=== PATIENT | female | born 1995 ===

== ENCOUNTER 2019-05-17 11:01 | Day surgery (SDC) | payer SELFPAY ==
[2019-05-17] MEDS ORDERED: fentaNYL* 50 MCG/ML 2 ML VIAL (100 MCG VIAL) ONE ×3 (12:03→13:51)
[2019-05-17] MEDS ORDERED: Propofol* 10 MG/ML 20 ML BTL ONE (12:04)
[2019-05-17] MEDS ORDERED: Dexamethasone IV* 4 MG/ML 1 ML (4 MG) ONE (12:04)
[2019-05-17] MEDS ORDERED: Ondansetron INJ* 2 MG/ML VIAL ONE (12:04)
[2019-05-17] MEDS ORDERED: Rocuronium* 10 MG/ML VIAL ONE (12:04)
[2019-05-17] MEDS ORDERED: Ketorolac INJ* 30 MG/ML 1 ML VIAL ONE (12:04)
[2019-05-17] MEDS ORDERED: Lidocaine 2% PF * 5 ML VIAL ONE ×2 (12:08→13:16)
[2019-05-17] MEDS ORDERED: Piperacillin/Tazobactam VIAL*) 3.375 GM VIAL (COMPD & OVERRIDE) IVPB ONE (12:14)
[2019-05-17] MEDS ORDERED: Sugammadex * 200 MG/2 ML VIAL IV PUSH ONE (12:16)
[2019-05-17] MEDS ORDERED: Neostigmine Methylsulfate* 1 MG/ML 10 ML VIAL (1 mg/ml) ONE (13:14)
[2019-05-17] MEDS ORDERED: Glycopyrrolate IV* 0.2 MG/ML 1 ML VIAL ONE (13:15)
[2019-05-17] MEDS ORDERED: Bacitracin OINTMENT* 0.5% 0.5 oz TUBE ONE (13:30)
--- NOTE | 2019-05-17 13:35 | BRIEFOPN ---
Brief Operative Note - Surgery Procedures: Pre-OP Diagnoses: acute appendicitis Post-op Diagnosis: same Procedure: Laparoscopic appendectomy Surgeon: Susie Asst: ANTONIO Mayfield Anethesia: TU EBL: minimal IVF: crystalloid Specimen: appendix Drains: none
[2019-05-17] MEDS ORDERED: fentaNYL* 50 MCG/ML 2 ML VIAL (100 MCG VIAL) IV PRN (13:47)
[2019-05-17] MEDS ORDERED: Naloxone* 0.4 MG/ML 1 ML VIAL IV PRN (13:47)
[2019-05-17] MEDS ORDERED: DiMENhydriNATE IV* 50 MG/ML VIAL IV PUSH PRN (13:47)
[2019-05-17] MEDS ORDERED: DiMENhydriNATE IV* 50 MG/ML VIAL ONE (13:51)
--- NOTE | 2019-05-17 15:00 | HP ---
CC: Dr. Cobb in [facility] * HISTORY AND PHYSICAL: DATE OF ADMISSION: 05/17/19. The patient was seen in the preoperative area on 05/17/19. HISTORY: I was contacted by [facility] that the patient is in the emergency room with acute abdominal pain and workup consistent with acute appendicitis, so I asked the patient to be transferred to our unit and she was. I saw the patient today that she had pain starting last night. It was a dull mid abdominal pain that woke her up 2 a.m. this morning and she had a significant abdominal pain doubled over and crying. She did have appetite at that time and did eat and that was the last time she had eaten and she still maintains good appetite. She had positive nausea without vomiting. No fevers or chills. She did have constipation but no diarrhea. The patient also describes some shortness of breath with symptoms. She denies any previous similar symptoms. PAST MEDICAL HISTORY: Anxiety. PAST SURGICAL HISTORY: None. MEDICATIONS: None. ALLERGIES: No known drug allergies. FAMILY HISTORY: Noncontributory. No family history of ulcerative colitis or Crohn's disease. SOCIAL HISTORY: Smoker about a half a pack a day. Smokes marijuana almost daily. She lives with family. She is a nonworker. REVIEW OF SYSTEMS: No fevers or chills. Positive shortness of breath as described. Obesity. No metabolic disorders. The patient has never been hospitalized. No bleeding or clotting disorders. No dysuria. Her last menstrual period was 4 days ago. It was normal. PHYSICAL EXAMINATION GENERAL: Alert and oriented x3, in no apparent distress. VITAL SIGNS: She is afebrile. Vital signs are stable. HEAD, EYES, EARS, NOSE, AND THROAT: Normocephalic, atraumatic. Sclerae anicteric. Mucous membranes are moist. NECK: No lymphadenopathy. LUNGS: Clear to auscultation bilaterally. ABDOMEN: Soft, obese, tender on any palpation at the right lower quadrant epigastric region. Positive voluntary guarding. No involuntary guarding. No rebound. No hernia is noted. EXTREMITIES: Within normal limits. RECTAL: Not performed. DIAGNOSTIC STUDIES/LAB DATA: The patient's labs from the other hospital reviewed. White count was elevated at 26. Urinalysis had a cloudy appearance and had positive nitrites. LFTs within normal limits and metabolic panel also within normal limits with a glucose of 150, which is elevated as the only outlier. CT scan reviewed shows a mildly dilated appendix with periappendiceal inflammation. IMPRESSION: Acute appendicitis and urinary tract infection. RECOMMENDATIONS: Antibiotics and OR for laparoscopic appendectomy. I outlined the details of the procedure going over the risks, benefits, and alternatives of the procedure and the patient's family agreed to proceed as described. I went over the potential complications of bleeding, infection, additional findings at the time of surgery as well as abscess formation, need for open procedure, or additional procedures. The patient signed consent. She was marked and she is scheduled for written surgery. Antibiotics, Givens catheter in OR. [id number] #: [id number] MTDD
[2019-05-17] MEDS ORDERED: oxyCODONE/Acetamin 5/325 MG* TAB ONE (15:23)
[2019-05-17 16:25] VITALS: BP 120/86
--- NOTE | 2019-05-17 16:41 | OP ---
CC: Dr. Dempsey * DATE OF OPERATION: 05/17/19 - [facility] DATE OF : 89 SURGEON: Fran Richards MD FOOT WORKER: ANTONIO Ellis ANESTHESIOLOGIST: Dr. Stauffer. ANESTHESIA: General anesthesia. PRE-OP DIAGNOSIS: Acute appendicitis. POST-OP DIAGNOSIS: Acute appendicitis. OPERATIVE PROCEDURE: Laparoscopic appendectomy. ESTIMATED BLOOD LOSS: Minimal. FLUIDS: Crystalloid fluid given. SPECIMENS: Appendix. COUNTS: Lap pad count and instrument count correct at the end of the procedure. DESCRIPTION OF PROCEDURE: The patient was identified in the preoperative area, brought to the OR, placed on the operating table in supine position. Preoperative antibiotics were given. A Givens catheter was inserted and the patient's abdomen was prepped and draped in standard surgical fashion. A time- out was performed. I attempted to place a Veress needle through the umbilicus; this proved difficult, and I abandoned this and rather made an infraumbilical incision. We deepened this down to what appeared to be hernia and this was lifted up, but another attempt of a Veress needle was failed and I felt that I could not see deep given the patient's body habitus to make a cut down at this point and rather converted my attention to the right upper quadrant where an incision was made, deepened down to the fascia which was elevated and Veress needle was advanced successfully and placed in the abdomen, which was allowed to insufflate to a pressure of 15 mmHg. Veress needle was removed and a 12 mm Optiview trocar was inserted. Laparoscope was inserted through this. There was no evidence of injury from the trocar insertion or from the Veress needle. Review of the umbilicus area revealed that the Veress needle never violated the peritoneum. Additional 5 mm trocar was placed at the umbilicus and then at the suprapubic area. Table was repositioned, dilated, but nonperforated appendix was clearly identified. We made a window at the base of the appendix and fired a 30-mm jaime MICHAEL stapling device across this to help the tissue. The appendiceal artery was then isolated and clipped and ligated. The appendix was then placed in endoscopic retrieval bag. Review of the abdomen showed normal appearing ovary. There was some scant blood in the pelvis, but the ovaries left and right both appeared normal as did the uterus. There was no free fluid other than a scant blood, which I believe was from the trocar insertion. Next, we ran the small bowel retrograde from the terminal ileum approximately 60 cm and no lesions were identified. At this point, the appendix was removed from the right upper quadrant port site with an endoscopic retrieval bag and we closed the fascia at this level with a 0 - Polysorb suture using a Weck device. The abdomen was allowed to collapse. Trocar removed under direct vision and all 3 skin incisions were reapproximated with 4-0 Monocryl subcuticular sutures followed by sterile dressing. The patient tolerated the procedure well and was transferred to the PACU in stable condition. [id number]/[id number] #: [id number] SWETHA
== END 2019-05-17 16:26 | disposition home or self-care (01) ==
LOC: OR 11:01
PROVIDERS: ATTEND Surgery
DX: K35.80 Unspecified acute appendicitis (principal); R10.9 Unspecified abdominal pain; N39.0 Urinary tract infection, site not specified; R06.02 Shortness of breath; Z72.0 Tobacco use
CPT/HCPCS: 81025; 88304; A9270-GY; J1100; J1240; J1885; J2405; J2543; J2704; J2710; J3010